=== PATIENT | male | born 1965 | race Caucasian/White ===

== ENCOUNTER → 2017-07-12 | Outpatient (CLI) | payer OTHER ==
--- NOTE | 2017-07-12 13:52 | DIAGNOSTIC IMAGING REPORT ---
R UPPER EXT JOINT WITHOUT CLINICAL HISTORY: 51 years-old Male presenting with RT SHOULDER PAIN, prior injection 8 months ago, not helped by repeat injection, limited range of motion. TECHNIQUE: Multisequence, multiplanar MR imaging of the right shoulder was performed without the use of intravenous contrast. IV contrast: None. COMPARISON: None. FINDINGS: Localizer images: Unremarkable. Cystic change noted at the greater and lesser tubercles of the humeral head. Focal T1 hypointense, T2 hyperintense lesion centrally in the medullary space centered at the metaphysis may represent a small chondroid lesion. Ovoid T1 hypointense, T2 hypointense body within the myotendinous junction of the infraspinatus suggest calcific tendinitis. Minimal bony edema noted in the distal clavicle associated with the acromioclavicular joint. No other sites of bony edema. The inferior labrum demonstrates irregularity concerning for degenerative type tear (series 8 image 11). The remainder of the labrum is intact. Articular cartilage demonstrates thinning at the inferior aspect of the glenohumeral joint. The biceps labral complex is intact. The long head of the biceps tendon remains well seated in the intertubercular groove. Linear increased signal intensity within the proximal fibers of the long head of the biceps concerning for partial tear. Fluid signal intensity at the footplate and critical zone of the supraspinatus consistent with articular surface partial tear. Laminar increased signal intensity within the substance of the myotendinous junction of the infraspinatus suggests laminar type tear. Evidence of tendinosis of the insertional fibers of the infraspinatus. Teres minor intact. Increased signal intensity of the proximal insertional fibers of the subscapularis raising concern for partial undersurface tear (series 4 image 13). The transverse ligament remains intact. Small shoulder joint effusion. A loose body is noted in the subcoracoid recess. Only trace fluid noted in the subacromial subdeltoid bursa. Suggestion of mild thickening of the synovium in the axillary pouch suggesting synovitis. The acromion process has a flat undersurface. Degenerative changes of the acromioclavicular joint. IMPRESSION: 1. Degenerative changes of the glenohumeral joint with degeneration of the inferior labrum and articular cartilage thinning. 2. Linear high signal intensity within the proximal long head of the biceps tendon concerning for partial tear though the biceps labral complex is intact and the tendon remains within the intertubercular groove. 3. Findings suspicious for articular surface partial tear of the supraspinatus at the insertional fibers and critical zone. 4. Tendinosis of the infraspinatus with focal calcification at the myotendinous junction, which could suggest calcific tendinitis. 5. Partial undersurface tear of the subscapularis at the proximal and surgical fibers suspected. 6. Small joint effusion with a loose body in the subcoracoid recess. 7. Degenerative change of the acromioclavicular joint. Electronically signed by: Noam Vega M.D. 07/12/2017 1:50 PM Dictated Date/Time: 07/12/2017 1:39 PM
== END | disposition home or self-care (01) ==
PROVIDERS: ATTEND Orthopaedic Surgery
DX: M25.511 Pain in right shoulder (principal)

== ENCOUNTER → 2017-08-07 | Outpatient (CLI) | payer OTHER ==
[2017-08-07 12:17] LABS: BASO % 0.2 %; BASO ABS # 0.02 K/uL (0-0.2); EOS % 1.3 %; EOS ABS # 0.11 K/uL (0-0.5); HEMATOCRIT 46.9 % (42-52); HEMOGLOBIN 16.4 g/dL (14.0-18.0); IG# 0.02 K/uL (0.00-0.02); LYMPH % 22.8 %; MEAN CELL VOLUME 93.6 fL (80-100); MEAN CORPUSCULAR HEMOGLOBIN 32.7 pg (25-34); MEAN PLATELET VOLUME 10.3 fL (7.4-10.4); MONO % 7.1 %; MONO ABS # 0.59 K/uL (0.11-0.59); NEUT % 68.4 %; NEUT ABS # 5.69 K/uL (1.4-6.5); PLATELET COUNT 205 K/uL (130-400); RED CELL DISTRIBUTION WIDTH CV 13.5 % (11.5-14.5); RED CELL DISTRIBUTION WIDTH SD 46.3 fL (36.4-46.3); WHITE BLOOD COUNT 8.33 K/uL (4.8-10.8)
[2017-08-07 12:35] LABS: BLOOD UREA NITROGEN 19 mg/dl (7-18); CALCIUM 8.8 mg/dl (8.5-10.1); CARBON DIOXIDE 28 mmol/L (21-32); CREATININE 1.15 mg/dl (0.60-1.40); GLUCOSE 143 mg/dl (70-99); POTASSIUM 3.6 mmol/L (3.5-5.1); SODIUM 136 mmol/L (136-145)
== END | disposition home or self-care (01) ==
LOC: C.CPL 09:50
PROVIDERS: ATTEND Orthopaedic Surgery
DX: M75.31 Calcific tendinitis of right shoulder (principal)

== ENCOUNTER → 2017-08-16 | Day surgery (SDC) | payer OTHER ==
[2017-08-09 08:36] VITALS: Ht 172.7 cm; Wt 104.5 kg
[~2017-08-16] VITALS: Ht 172.7 cm; Wt 104.5 kg
[~2017-08-16] MED LIST: ATOR-24 PO; ATROPINE SULFATE 0.1 MG/ML 5ML SYR IV PRN; BUPIVACAINE/EPINEPHRINE 0.25% 1:200,000 30 ML VIAL ONE; CEFAZOLIN 2000MG IV PUSH 10 ML IV SCH; DEXAMETHASONE SOD INJ 4 MG/ML VIAL ONE; DICL-201 PO; EpHEDrine SULFATE INJ 50 MG/ML AMP IV PRN; EpINEphrine INJ 1MG/ML AMP 1 MG/ML AMP ONE; FENTANYL CITRATE INJ 50 MCG/1 ML 2 ML VIAL IV PRN; FENTANYL CITRATE INJ 50 MCG/1 ML 2 ML VIAL ONE; IBUP-1277 PO; IBUP200C14; KETO10TA PO; LACTATED RINGER'S 1000ML 1,000 ML IV SCH; MIDAZOLAM HCL 1 MG/ML 2ML VIAL ONE; ONDANSETRON INJ 2 MG/ML 2 ML VIAL IV PRN; ONDANSETRON INJ 2 MG/ML 2 ML VIAL ONE; OXYC-57 PO; OXYCODONE/ACETAMINOPHEN 5-325 TAB PO PRN; PROPOFOL IV EMULSION 10 MG/ML 20 ML VIAL IV ONE; ROPIVACAINE 0.5% 5 MG/ML 30 ML VIAL ONE; SODIUM CHLORIDE 0.9% 1000ML 1,000 ML IV SCH
--- NOTE | 2017-08-16 08:45 | History & Physical Bridge Note ---
H&P Re-Evaluation Bridge Note: I have examined the patient, reviewed the History & Physical and in the interval since the performance of the History & Physical I have noted the following changes of clinical significance: No changes noted
--- NOTE | 2017-08-16 11:48 | [facility] Post Operative Brief Note ---
Immediate Operative Summary Operative Date Aug 16, 2017. Pre-Operative Diagnosis Right Shoulder Small Rotator Cuff Tear Post-Operative Diagnosis Same Procedure(s) Performed Right Shoulder Arthroscopy, Rotator Cuff Repair, Acromioplasty, Removal Loose Body Surgeon Dr. Kruse Rental Management Trainee Surgeon(s) Sirisha Longo PA-C Estimated Blood Loss 5 ml Findings ABOVE Specimens None Complication(s) None Disposition Recovery Room / PACU
--- NOTE | 2017-08-16 12:07 | Discharge Instructions-SurgCtr ---
Discharge Instructions Date of Service Aug 16, 2017. Visit Reason for Visit: Right Shoulder Calcific Tendinitis, Rotator Cuff T Discharge Discharge Diagnosis / Problem: SAME ABOVE Discharge Goals Goal(s): Decrease discomfort, Improve function Medications Stopped Medications Name(s): nuria, last dose 08/08/17 Restart Stopped Medication(s): MAY RESTART 08/16/2016 Activity Recommendations Activity Limitations: as noted below Lifting Limitations: until after follow-up appointment Exercise/Sports Limitations: until after follow-up appointment Shower/Bathe: tomorrow Anesthesia . Post Anesthesia Instructions: If you have had General Anesthesia or IV Sedation: * Do not drive today. * Resume driving when surgeon permits. * Do not make important decisions or sign legal documents today. * Call surgeon for: 1. Temperature elevations greater than 101 degrees F. 2. Uncontrollable pain. 3. Excessive bleeding. 4. Persistent nausea and vomiting. 5. Medication intolerance (nausea, vomiting or rash). * For nausea and vomiting use only clear liquids such as: tea, soda, bouillon until nausea subsides, then gradually increase diet as tolerated. * If you have any concerns or questions, call your surgeon's office. If physician is unavailable and it is an emergency, call 911 or go to the nearest emergency room. . Instructions / Follow-Up Instructions / Follow-Up MEDICATIONS: * Resume previous medications unless instructed otherwise by your surgeon. * Always take pain medication on a full stomach or with food to avoid upset stomach. * Do not drink alcohol or drive while taking narcotics. * Ibuprofen or Tylenol may be taken if narcotic not needed. SPECIAL CARE INSTRUCTIONS: __ None _X_ Keep extremity elevated and iced x 48 hours; apply ice 20-30 minutes 8-10 times/day. May remove at night. _X_ Sling (MAY REMOVE AFTER 48 HOURS ONLY TO SHOWER AND FOR THERAPY) _X_24 hrs/day __ Remove at night __ Shoulder Immobilizer __ 24 hrs/day __ Remove at night _X_ Dressing __ Maintain until seen in office, may shower with plastic over site _X_ Remove dressings in 24-48 hours and then may shower _X_ Cover incisions with band-aids after showering __ Do not remove steri-strips Call physician if chills or temperature rises above 102 degrees or pain unrelieved by prescribed pain medications at . . Diet Recommendations Home Diet: no limitations Fluid Restriction: None Procedures Procedures Performed: Right Shoulder Arthroscopy, Rotator Cuff Repair, Acromioplasty, Removal Loose Body Pending Studies Studies pending at discharge: no Work Instructions Return To Work: after follow-up Lifting Limitations: NO LIFTING WITH RIGHT ARM Medical Emergencies . Who to Call and When: Medical Emergencies: If at any time you feel your situation is an emergency, please call 911 immediately. . Non-Emergent Contact Non-Emergency issues call your: Primary Care Provider Call Non-Emergent contact if: you have a fever, temperature is above 101.5 . . "Provider Documentation" section prepared by Adolfo Longo. .
[2017-08-16 12:50] VITALS: TEMP 36.3
--- NOTE | 2017-08-16 13:07 | Anesthesia Progress Nt - [facility] ---
Anesthesia Post Op Note Date & Time Aug 16, 2017 at 13:07 Vital Signs Pain Intensity: 2 Vital Signs Past 12 Hours Date Time Temp Pulse Resp B/P (MAP) Pulse Ox O2 Delivery O2 Flow Rate FiO2 08/16/17 12:50 36.3 76 18 122/84 (97) 94 Room Air 08/16/17 12:45 111/95 18 12:42 76 14 18 12:42 76 14 97 18 12:42 36.4 74 20 135/76 94 Room Air 08/16/17 12:41 79 12 94 18 12:41 79 12 18 12:40 135/76 08/16/17 12:38 80 14 95 08/16/17 12:38 80 14 08/16/17 12:35 109/83 18 12:33 79 13 95 18 12:33 79 13 18 12:32 77 14 93 18 12:32 77 14 18 12:30 131/83 18 12:27 82 13 94 18 12:27 82 13 18 12:26 77 10 94 18 12:26 77 10 18 12:25 133/91 18 12:22 83 16 93 18 12:22 81 16 18 12:21 89 17 92 18 12:21 87 17 18 12:20 150/95 18 12:18 83 18 96 18 12:18 82 18 18 12:17 87 19 96 08/16/18 12:17 87 19 18 12:16 136/93 08/16/18 12:12 83 14 18 12:12 82 14 95 18 12:11 75 14 96 08/16/18 12:11 75 14 08/16/18 12:10 142/92 18 12:06 88 14 125/92 96 18/18 12:06 88 14 18 12:06 36.5 86 16 125/92 95 Mask 18 10:41 0 1/18/18 10:40 77 /18/18 10:40 77 10 97 /18/18 10:36 128/71 /18/18 10:35 75 17 99 /18/18 10:35 75 /18/18 10:32 109/80 /18/18 10:30 77 /18/18 10:30 77 20 99 /18/18 10:26 158/99 18/18 10:25 74 /18/18 10:25 71 33 100 18/18 10:20 82 26 133/87 99 18/18 10:20 82 18/18 10:15 76 18/18 10:15 74 19 138/99 99 18/18 10:10 74 08/16/18 10:10 76 21 134/91 100 18/18 10:06 136/91 18/18 10:05 77 27 98 18/18 10:05 74 08/16/18 10:00 76 08/16/18 10:00 77 25 132/93 98 18/18 09:55 80 61 126/91 99 18/18 09:55 81 18/18 09:50 76 /18/18 09:50 75 21 133/89 99 18/18 09:46 145/79 18/18 09:45 84 23 99 /18/18 09:45 79 /18/18 09:41 137/109 18/18 09:40 92 18/18 09:40 87 18 99 18/18 09:35 86 18/18 09:35 87 18 138/109 100 18/18 09:31 140/118 18/18 09:30 79 29 100 18/18 09:30 77 /18/18 09:27 176/108 18/18 09:25 76 /18/18 09:25 77 0 99 /18/18 09:20 77 0 /18/18 08:22 147/96 (113) 18/18 08:06 36.9 83 16 138/105 (116) 96 Room Air Notes Mental Status: alert / awake / arousable, participated in evaluation Pt Amnestic to Procedure: Yes Nausea / Vomiting: adequately controlled Pain: adequately controlled Airway Patency, RR, SpO2: stable & adequate BP & HR: stable & adequate Hydration State: stable & adequate Anesthetic Complications: no major complications apparent
[2017-08-16 13:19] VITALS: BP 130/72; PULSE 89; O2SAT 98
--- NOTE | 2017-08-16 14:01 | OPERATIVE REPORT ---
DATE OF OPERATION: 08/16/2017 PREOPERATIVE DIAGNOSES: Mild osteoarthritis of the right shoulder with 2 large loose bodies and a small rotator cuff tear. POSTOPERATIVE DIAGNOSES: Same. PROCEDURES: Right shoulder diagnostic arthroscopy with limited debridement, removal of 2 large loose bodies, acromioplasty and small rotator cuff repair. SURGEON: Dr. Hua Kruse. OPERATIONS SUPPORT ANALYST: Olaf Longo PA-C, whose assistance was necessary for helping with arthroscopic instrumentation and closure. ANESTHESIA: General with a right interscalene nerve block. COMPLICATIONS: None. CONDITION: Stable to PACU. INDICATIONS: Casper is a pleasant 52-year-old male who presented to my office with a 1-year history of right shoulder pain. MRI and clinical examination were diagnostic for mild arthritis with 2 large loose bodies, 1 in the supraspinatus and 1 in the subcoracoid space. He elected to undergo arthroscopy. DESCRIPTION OF PROCEDURE: On 08/16/2017, he arrived at [facility] for the above procedure. He was seen in the preoperative holding area and the operative extremity was identified and signed. He was preoperative antibiotics and a right interscalene nerve block. He was taken back to the operating room, laid on the table in supine position and put under general anesthesia. He was then put into the beachchair position. The right shoulder was prepped and draped in the sterile fashion. Time-out was done and the patient's operative extremity was properly identified. A scope was introduced into the posterior portal. Diagnostic arthroscopy showed grade 2 and grade 3 chondral changes on the humeral head, most seen in the superior half of the humeral head. There were no large defects. There was an area of grade 4 chondral damage on the anterior inferior glenoid. There was some fraying of the labrum. The labrum was generally intact. The biceps tendon was intact and went through a normal size biceps lary mechanism. There was a large loose body about 1.5 cm x 1 cm in the subcoracoid space and there was a loose body that had entered through the articular footprint of the supraspinatus. An anterior portal was made. A shaver was used to do a limited debridement of the intraarticular structures. A mild chondroplasty was done and the labrum was debrided. The biceps tendon was pulled into the joint and was intact. A grasper was used to remove the 2 large loose bodies. There was no damage to the subscapularis, but the loose body removed from the supraspinatus left a defect at the footprint. The scope was then put into the subacromial space. A lateral portal was made. A shaver was used to do a complete subacromial and subdeltoid bursectomy. An ablator was used to tease the coracoacromial ligament off the undersurface of the acromion and a 5-0 carmen was used to complete an acromioplasty of a Bigliani type 2 acromion. A shaver was used to remove any excess debris and attention was turned to the rotator cuff. There was a small hole through the bursal side. An additional anterolateral portal was made. A shaver was used to open up the bursal side of the tear and complete the remainder of the rotator cuff tear. The cuff tear measured about a cm in the AP diameter. The greater tuberosity was prepared with a ring curette and a microfracture. The rotator cuff was then fixed with an Arthrex modified SpeedBridge configuration using a single medial row 4.75-mm BioComposite SwiveLock suture anchors and FiberTapes to pull the tendon back down to the bone. This gave a nice knotless SpeedBridge repair. Multiple pictures were taken. The scope was put back into the glenohumeral joint and the articular margin of the rotator cuff had been restored. Pictures were taken. Arthroscopic instruments were removed from the shoulder. Portal sites were closed with 3-0 nylon. He was then placed in a soft dressing and an abduction arm sling. He was then extubated, transferred to a [facility] and taken to the postanesthesia care unit in stable condition. He tolerated the procedure well. I attest to the content of the Intraoperative Record and any orders documented therein. Any exceptions are noted below. CELINA
== END | disposition home or self-care (01) ==
LOC: X.SURG 07:46
PROVIDERS: ATTEND Orthopaedic Surgery
DX: M19.011 Primary osteoarthritis, right shoulder (principal); M75.101 Unspecified rotator cuff tear or rupture of right shoulder, not specified as traumatic; M75.31 Calcific tendinitis of right shoulder; M24.011 Loose body in right shoulder; G47.33 Obstructive sleep apnea (adult) (pediatric); F17.200 Nicotine dependence, unspecified, uncomplicated; E66.9 Obesity, unspecified